=== PATIENT | male | born 1985 | race Caucasian/White ===

== ENCOUNTER 2016-10-20 16:35 | Emergency (ER) | payer OTHER ==
[~2016-10-20] VITALS: Ht 182.9 cm; Wt 90.9 kg
[2016-10-20 16:45] VITALS: BP 135/79; PULSE 100; RESP 12; O2SAT 100
== END 2016-10-20 17:09 | disposition left against medical advice (07) ==
LOC: SED 16:35
DX: T40.1X1A Poisoning by heroin, accidental (unintentional), initial encounter (principal); Z53.21 Procedure and treatment not carried out due to patient leaving prior to being seen by health care provider